=== PATIENT | female | born 1990 | race Caucasian/White ===

== ENCOUNTER → 2017-02-15 | Outpatient (CLI) | payer OTHER | LOC: OD 12:24 | PROVIDERS: ATTEND Midwife | DX: N91.2 Amenorrhea, unspecified (principal) | CPT/HCPCS: 36415; 84702 ==

== ENCOUNTER → 2017-03-10 | Outpatient (CLI) | payer OTHER | LOC: RAD 14:40 | PROVIDERS: ATTEND Student in an Organized Health Care Education/Training Program | DX: N97.9 Female infertility, unspecified (principal) | CPT/HCPCS: 58340; 74740 ==